=== PATIENT | male | born 1980 | race Caucasian/White ===

== ENCOUNTER 2025-04-23 09:00 | Outpatient (RCR) | payer OTHER, SELFPAY ==
[2025-04-17] MEDS: Normal Saline Flush 10 ML SYR IVP (08:31)
[2025-04-17 08:34] LABS: HCT 25.3 % (40.0-50.0); HGB 7.5 g/dL (13.5-17.5); MCH 23.4 pg (27.0-33.0); MCV 79 fL (80-95); MPV 9.2 fL (8.0-11.0); Platelet Count 478 10^3/uL (130-400); RBC 3.20 10^6/uL (4.36-5.78); RDW-SD 64.0 fL; WBC 5.19 10^3/uL (4.4-10.8)
[2025-04-17 08:55] LABS: MCHC 29.6 % (32.0-36.0)
[2025-04-17 08:56] LABS: RDW 22.7 % (11.8-14.1)
[2025-04-17 11:45] VITALS: BP 105/68; PULSE 102; RESP 18; TEMP 37.7; O2SAT 98
[2025-04-17 12:05] VITALS: BP 121/73; PULSE 104; RESP 18; TEMP 37.7; O2SAT 97
[2025-04-17 12:09] VITALS: BP 101/45; PULSE 67; RESP 19; TEMP 36.7; O2SAT 99
[2025-04-17 12:20] VITALS: BP 118/73; PULSE 99; RESP 18; TEMP 37.7; O2SAT 98
[2025-04-17 12:50] VITALS: BP 124/69; PULSE 108; RESP 18; TEMP 37.4; O2SAT 18
[2025-04-17 13:29] VITALS: BP 118/75; PULSE 102; RESP 18; TEMP 37.6; O2SAT 97
[2025-04-23 08:50] LABS: HCT 27.3 % (40.0-50.0); HGB 8.8 g/dL (13.5-17.5); MCH 25.4 pg (27.0-33.0); MPV 8.8 fL (8.0-11.0); Platelet Count 618 10^3/uL (130-400); RBC 3.47 10^6/uL (4.36-5.78); RDW 22.0 % (11.8-14.1); RDW-SD 62.2 fL; WBC 6.45 10^3/uL (4.4-10.8)
[2025-04-23] MEDS: Water,Injection,Sterile 10 ML VIAL (09:10)
[2025-04-23] MEDS: Alteplase 2 MG VIAL IJ (09:10)
[2025-04-23] MEDS: Normal Saline Flush 10 ML SYR IVP (09:10)
[2025-04-23 09:35] LABS: MCHC 32.2 % (32.0-36.0); MCV 79 fL (80-95)
== END 2025-04-28 23:59 | disposition home or self-care (01) ==
LOC: INF 09:00
PROVIDERS: Visit Provider Internal Medicine Medical Oncology
DX: C18.7 Malignant neoplasm of sigmoid colon (principal)
CPT/HCPCS: 36430; 36591; 85027; 86850; 86900; 86901; 86920; J2997; P9016

== ENCOUNTER 2025-05-07 00:56 | Outpatient (RCR) | payer OTHER, SELFPAY ==
[2025-05-07] MEDS: Normal Saline Flush 10 ML SYR IVP (08:21)
[2025-05-07 08:31] LABS: HCT 25.3 % (40.0-50.0); MCH 24.5 pg (27.0-33.0); MCHC 29.6 % (32.0-36.0); MCV 83 fL (80-95); MPV 9.7 fL (8.0-11.0); Platelet Count 541 10^3/uL (130-400); RBC 3.06 10^6/uL (4.36-5.78); RDW-SD 61.7 fL; WBC 11.92 10^3/uL (4.4-10.8)
[2025-05-07 08:48] LABS: Anion Gap 9.3 mmol/L (3-11); BUN 8 mg/dL (9-23); CO2 28.7 mmol/L (20.0-31.0); Calcium 9.0 mg/dL (8.3-10.6); Chloride 101 mmol/L (98-107); Glucose 126 mg/dL (74-106); Potassium 3.3 mmol/L (3.5-5.1); Sodium 139 mmol/L (136-145)
[2025-05-07 08:57] LABS: HGB 7.5 g/dL (13.5-17.5); RDW 22.3 % (11.8-14.1)
[2025-05-07 09:38] VITALS: BP 120/72; PULSE 119; RESP 18; TEMP 36.1; O2SAT 97
[2025-05-07 09:55] VITALS: BP 126/77; PULSE 108; RESP 17; TEMP 36.8; O2SAT 97
[2025-05-07 10:11] VITALS: BP 130/83; PULSE 111; RESP 19; TEMP 37.2; O2SAT 100
[2025-05-07 10:40] VITALS: BP 131/80; PULSE 108; RESP 17; TEMP 37; O2SAT 97
[2025-05-07 11:40] VITALS: BP 135/93; PULSE 115; RESP 17; TEMP 36.1; O2SAT 99
== END 2025-05-29 23:59 | disposition home or self-care (01) ==
LOC: INF 00:56
PROVIDERS: Visit Provider Internal Medicine Medical Oncology
DX: C18.7 Malignant neoplasm of sigmoid colon (principal)
CPT/HCPCS: 36430; 36591; 80048; 85027; 86850; 86900; 86901; 86920; P9016